=== PATIENT | female | born 1970 | race Hispanic/Latino ===

== ENCOUNTER 2021-12-28 23:47 | Emergency (ER) | payer OTHER, MEDICAID ==
[~2021-12-28] VITALS: Ht 152.4 cm; Wt 90.7 kg
[2021-12-29] MEDS ORDERED: IOHEXOL 350 MG/ML 100ML INFUS..BTL IV ONE (00:36)
[2021-12-29 00:40] LABS: BASOPHILS % (AUTO) 0.5 % (0.0-5.0); EOSINOPHILS % (AUTO) 0.2 % (0.0-8.0); HEMATOCRIT 41.1 % (36-48); LYMPHOCYTES % (AUTO) 15.5 % (21.0-51.0); MEAN CORPUSCULAR HEMOGLOBIN 30.5 pg (27.0-33.0); MEAN CORPUSCULAR HGB CONC 32.4 g/dL (32.0-36.0); MEAN CORPUSCULAR VOLUME 94.3 fL (79-99); MONOCYTES % (AUTO) 5.6 % (3.0-13.0); NEUTROPHILS % (AUTO) 77.9 % (40.0-77.0); PLATELET COUNT (AUTO) 358 K/uL (130-400); RED BLOOD CELL COUNT(AUTO) 4.36 MIL/uL (4.00-5.50); RED CELL DISTRIBUTION WIDTH 13.1 % (11.0-15.5); WHITE BLOOD COUNT (AUTO) 13.7 K/uL (4.8-10.8)
[2021-12-29 00:51] LABS: INR 0.94 (0.85-1.15); PROTHROMBIN TIME 10.3 SEC (9.6-11.6)
[2021-12-29 00:52] LABS: CREATININE 0.7 mg/dL (0.5-1.5); PARTIAL THROMBOPLASTIN TIME 27.6 SEC (26.3-35.5); POTASSIUM 3.7 mmol/L (3.5-5.1)
[2021-12-29 00:56] LABS: ALBUMIN 3.9 g/dL (3.5-5.0); BILIRUBIN,TOTAL 0.2 mg/dL (0.2-1.0); TOTAL PROTEIN, SERUM 7.6 g/dL (6.0-8.3)
[2021-12-29] MEDS ORDERED: 0.9%NACL 1000ML 1,000 ML IV ONE (01:16)
[2021-12-29] MEDS ORDERED: FENTANYL CITRATE PF 50 MCG/1 ML 2ML VIAL ONE (01:33)
[2021-12-29] MEDS ORDERED: ORPHENADRINE CITRATE 30 MG/ML ML ONE (01:47)
[2021-12-29] MEDS ORDERED: CEFTRIAXONE 1G VIAL ONE (01:48)
[2021-12-29] MEDS ORDERED: KETOROLAC 30MG VIAL (30MG/ML) ONE (01:48)
[2021-12-29] MEDS ORDERED: KETOROLAC 30MG VIAL (30MG/ML) IVP ONE (02:00)
[2021-12-29] MEDS ORDERED: ORPHENADRINE CITRATE 30 MG/ML ML IVP ONE (02:00)
[2021-12-29] MEDS ORDERED: CEFTRIAXONE 1G VIAL IVP ONE (02:00)
[2021-12-29 02:16] LABS: APPEARANCE,URINE Clear (CLEAR); BILIRUBIN,URINE Negative (NEGATIVE); COLOR,URINE Yellow (YELLOW); GLUCOSE, URINE (UA) Negative (NEGATIVE); KETONES,URINE Negative (NEGATIVE); LEUKOCYTE ESTERASE ,URINE Negative (NEGATIVE); NITRATE,URINE Negative (NEGATIVE); OCCULT BLOOD,URINE Negative (NEGATIVE); PROTEIN,URINE Negative (NEGATIVE); UROBILINOGEN,URINE 0.2 mg/dL (0.2-1.0)
[2021-12-29 02:24] LABS: AMPHET/METH SCREEN,URINE NEGATIVE (NEGATIVE); BARBITURATE SCREEN, URINE NEGATIVE (NEGATIVE); BENZODIAZEPINES SCREEN,URINE NEGATIVE (NEGATIVE); CANNABINOID SCREEN,URINE NEGATIVE (NEGATIVE); COCAINE SCREEN,URINE NEGATIVE (NEGATIVE); OPIATE SCREEN,URINE NEGATIVE (NEGATIVE); PHENCYCLIDINE SCREEN,URINE NEGATIVE (NEGATIVE)
[2021-12-29] MEDS ORDERED: MELO7.5T12 PO (02:32)
[2021-12-29] MEDS ORDERED: ONDA4TAB10 PO (02:32)
[2021-12-29] MEDS ORDERED: CYCL-309 PO (02:32)
[2021-12-29 03:00] VITALS: BP 124/78
== END 2021-12-29 02:50 | disposition home or self-care (01) ==
LOC: EDH 23:47
DX: S16.1XXA Strain of muscle, fascia and tendon at neck level, initial encounter (principal); S30.1XXA Contusion of abdominal wall, initial encounter; S20.211A Contusion of right front wall of thorax, initial encounter; V49.59XA Passenger injured in collision with other motor vehicles in traffic accident, initial encounter; Y93.89 Activity, other specified; Y92.413 State road as the place of occurrence of the external cause; Y99.8 Other external cause status
CPT/HCPCS: 36415; 70450; 71260; 72125; 74177; 80053; 80305; 81003; 83605; 83690; 84484; 85025; 85610; 85730; 86850; 86900; 86901; 93005; 96361; 96374; 96375; 99285; J0696; J1885; J2360; J3010; J7030; Q9967